=== PATIENT | female | born 2000 | race Caucasian/White ===

== ENCOUNTER 2021-01-28 10:29 | Emergency (ER) | payer SELFPAY ==
[2021-01-28] MEDS ORDERED: SILVADENE20 GM TP (11:33)
== END 2021-01-28 10:41 | disposition home or self-care (01) ==
LOC: ER1 10:29
DX: T23.101A Burn of first degree of right hand, unspecified site, initial encounter (principal); T23.102A Burn of first degree of left hand, unspecified site, initial encounter; T31.0 Burns involving less than 10% of body surface; F17.290 Nicotine dependence, other tobacco product, uncomplicated; X19.XXXA Contact with other heat and hot substances, initial encounter
CPT/HCPCS: 99283